=== PATIENT | female | born 1955 | race Caucasian/White ===

== ENCOUNTER 2024-02-29 15:33 | Emergency (ER) | payer MEDICARE ==
[~2024-02-29] VITALS: Ht 167.6 cm; Wt 88.9 kg
[2024-02-29 15:51] VITALS: BP 106/56; PULSE 92; RESP 18; O2SAT 97
[2024-02-29 16:55] LABS: BILIRUBIN,URINE MODERATE (Neg); CLARITY,URINE CLOUDY (Clear); COLOR,URINE YELLOW (Yellow); GLUCOSE, URINE NEGATIVE (Neg); KETONES,URINE TRACE mg/dl (Neg); LEUKOCYTE ESTERASE ,URINE MODERATE (Neg); NITRITES, URINE NEGATIVE (Neg); OCCULT BLOOD,URINE SMALL (Neg); PROTEIN,URINE 100 mg/dl (Neg)
[2024-02-29 17:13] LABS: UA COLLECTION TYPE CLN CATCH MIDSTREAM
[2024-02-29 17:15] LABS: SQUAMOUS EPITHELIAL CELL,UR FEW /LPF (FEW)
[2024-02-29 17:16] LABS: WBC,URINE TNTC /HPF (0-4)
[2024-02-29 17:17] LABS: BACTERIA,URINE 3+ /HPF (Neg)
[2024-02-29] MEDS ORDERED: LEVO250T74 PO (17:32)
[2024-02-29] MEDS: levoFLOXACIN 250mg tablet PO ONE (18:13)
[2024-02-29 18:14] VITALS: TEMP 98
== END 2024-02-29 18:15 | disposition home or self-care (01) ==
LOC: ER 15:33
DX: N39.0 Urinary tract infection, site not specified (principal); R31.9 Hematuria, unspecified; Z88.1 Allergy status to other antibiotic agents
CPT/HCPCS: 81001; 87088; 99283

== ENCOUNTER 2024-03-16 11:00 | Emergency (ER) | payer MEDICARE ==
[~2024-03-16] VITALS: Ht 170.2 cm; Wt 87.3 kg
[~2024-03-16 11:00] MED LIST: LEVO250T74 PO
[2024-03-16 12:30] LABS: BILIRUBIN,URINE NEGATIVE (Neg); CLARITY,URINE CLOUDY (Clear); COLOR,URINE YELLOW (Yellow); GLUCOSE, URINE NEGATIVE (Neg); KETONES,URINE NEGATIVE (Neg); LEUKOCYTE ESTERASE ,URINE MODERATE (Neg); NITRITES, URINE NEGATIVE (Neg); OCCULT BLOOD,URINE TRACE-INTACT (Neg); PROTEIN,URINE 100 mg/dl (Neg); UROBILINOGEN,URINE 0.2 E.U/dL (0.2-1.0)
[2024-03-16 12:33] LABS: UA COLLECTION TYPE CLN CATCH MIDSTREAM
[2024-03-16 12:35] LABS: RBC,URINE 0-2 /HPF (0-2); WBC,URINE TNTC /HPF (0-4)
[2024-03-16 12:36] LABS: BACTERIA,URINE 4+ /HPF (Neg); MUCUS STRANDS NONE SEEN /LPF (Neg); SQUAMOUS EPITHELIAL CELL,UR MODERATE /LPF (FEW); WBC CLUMPS,URINE FEW /HPF (NEGATIVE)
[2024-03-16] MEDS ORDERED: CEPH-585 PO (12:57)
[2024-03-16] MEDS: CefTRIAXone 1000mg IM Kit (w/lidocaine diluent) IM ONE (12:59)
[2024-03-16 13:06] VITALS: BP 116/72; PULSE 80; RESP 18; TEMP 97.6; O2SAT 97
== END 2024-03-16 13:08 | disposition home or self-care (01) ==
LOC: ER 11:00
DX: N39.0 Urinary tract infection, site not specified (principal)
CPT/HCPCS: 81001; 87088; 96372; 99283; J0696

== ENCOUNTER 2024-03-31 11:04 | Inpatient (IN) | payer MEDICARE ==
[~2024-03-31] VITALS: Ht 170.2 cm; Wt 85.0 kg
[2024-03-31 11:47] LABS: BILIRUBIN,URINE NEGATIVE (Neg); CLARITY,URINE TURBID (Clear); COLOR,URINE YELLOW (Yellow); GLUCOSE, URINE NEGATIVE (Neg); KETONES,URINE TRACE mg/dl (Neg); LEUKOCYTE ESTERASE ,URINE SMALL (Neg); NITRITES, URINE NEGATIVE (Neg); OCCULT BLOOD,URINE SMALL (Neg); PH,URINE 6.5 (4.8-8.0); PROTEIN,URINE >=300 mg/dl (Neg)
[2024-03-31 11:48] LABS: UA COLLECTION TYPE CLN CATCH MIDSTREAM
[2024-03-31 11:53] LABS: HYALINE CASTS 0-3 /LPF (NEGATIVE); SQUAMOUS EPITHELIAL CELL,UR MODERATE /LPF (FEW); WBC,URINE TNTC /HPF (0-4)
[2024-03-31 11:54] LABS: AMORPHOUS URATES 3+; BACTERIA,URINE 4+ /HPF (Neg); TRANSITIONAL EPI CELLS,URINE FEW /HPF; WBC CLUMPS,URINE FEW /HPF (NEGATIVE)
[2024-03-31 14:00] LABS: BASOPHILS % (AUTO) 0.3 % (0-1); EOSINOPHILS # (AUTO) 0.5 X10'3 (0-0.9); EOSINOPHILS % (AUTO) 4.9 % (0-6); HEMATOCRIT 32.7 % (35.0-45.0); LYMPHOCYTES # (AUTO) 2.2 X10'3 (1.1-4.8); LYMPHOCYTES % (AUTO) 22.7 % (21-51); MEAN CORPUSCULAR HEMOGLOBIN 31.6 PG (27.0-31.0); MEAN CORPUSCULAR HGB CONC 33.6 g/dL (33.0-36.5); MEAN CORPUSCULAR VOLUME 94.1 FL (78-98); MEAN PLATELET VOLUME 7.7 FL (7.4-10.4); MONOCYTES # (AUTO) 1.1 X10'3 (0-0.9); MONOCYTES % (AUTO) 11.7 % (2-12); NEUTROPHILS # (AUTO) 5.9 X10'3 (1.8-7.7); NEUTROPHILS % (AUTO) 60.4 % (42-75); PLATELET COUNT 329 X10'3 (140-440); RED BLOOD COUNT 3.48 X10'6 (4.20-5.60); RED CELL DISTRIBUTION WIDTH 14.3 % (11.5-14.5); WHITE BLOOD COUNT 9.8 X10'3 (4.5-11.0)
[2024-03-31] MEDS ORDERED: iohexol 300mg/ml 100ml inj. ONE (14:48)
[2024-03-31 15:29] LABS: ALANINE AMINOTRANSFERASE 38 U/L (12-78); ALBUMIN 3.3 G/DL (3.4-5.0); ALBUMIN/GLOBULIN RATIO 0.7 (1.1-1.5); ALKALINE PHOSPHATASE 155 IU/L (46-116); ANION GAP 6 (8-16); ASPARTATE AMINO TRANSFERASE 30 U/L (10-37); BILIRUBIN,TOTAL 0.5 MG/DL (0.1-1.0); BLOOD UREA NITROGEN 17 MG/DL (7-18); BUN/CREATININE RATIO 12.5 (10.0-20.0); CHLORIDE 103 MMOL/L (99-107); CREATININE 1.36 MG/DL (0.40-0.90); GLUCOSE 105 MG/DL (70-104); POTASSIUM 4.8 MMOL/L (3.5-5.1); SODIUM 138 MMOL/L (135-145); TOTAL CARBON DIOXIDE 29.1 MMOL/L (24-32); TOTAL PROTEIN 7.8 G/DL (6.4-8.2); eCRCL 37 ML/MIN; eGFR 38 ML/MIN
[2024-03-31] MEDS: piperacillin/tazo 3.375gm/50ml 50 ML IV ONE (16:53)
[2024-03-31] MEDS ORDERED: acetaminophen 325mg tablet PO PRN ×2 (18:10)
[2024-03-31] MEDS ORDERED: mag hydrox/Alum hydrox/simeth 30ml oral suspension PO PRN (18:10)
[2024-03-31] MEDS ORDERED: potassium Cl 40MEQ/1/2NS 520ml 520 ML IV PRN (18:10)
[2024-03-31] MEDS ORDERED: ondansetron/PF 4mg/2ml inj IV PRN (18:10)
[2024-03-31] MEDS ORDERED: bisacodyl 10mg suppository rectal RC PRN (18:10)
[2024-03-31] MEDS ORDERED: HYDROcodone/acetaminophen 10/325mg tab PO PRN (18:10)
[2024-03-31] MEDS ORDERED: HYDROmorphone inj. 0.5 MG/0.5 ML DISP.SYRIN IV PRN ×2 (18:10)
[2024-03-31] MEDS ORDERED: vancomycin inj 1,000 MG in normal saline 250ml IV soln 250 ML IV ONE (18:10)
[2024-03-31] MEDS ORDERED: potassium Cl 20 mEq SR tablet PO PRN ×2 (18:10)
[2024-03-31] MEDS ORDERED: magnesium sulf-water 4G/100mL 100 ML IV PRN (18:10)
[2024-03-31] MEDS ORDERED: magnesium sulf-water 2g/50mL 50 ML IV PRN (18:10)
[2024-03-31] MEDS ORDERED: diatr meglu/diatrizoate 30ml oral sol.-(3 dose) bottle ONE (18:38)
[2024-03-31] MEDS: K and/or MAG REPLACEMENT MC SCH (19:08)
[2024-03-31] MEDS: normal saline 1000ml 1,000 ML IV SCH (19:22)
[2024-03-31] MEDS: VANCOMYCIN 1GM 200ML H20 (PEG) 200 ML IV SCH (19:22)
[2024-03-31] MEDS: docusate sod 100mg capsule PO SCH (20:00)
[2024-03-31] MEDS: enoxaparin 40mg/0.4ml syringe SQ SCH (20:05)
[2024-03-31] MEDS: cefepime 1GM in D5W 50mL 50 ML IV SCH (21:12)
[2024-04-01] MEDS ORDERED: NO HOME MEDS (01:52)
[2024-04-01 03:35] LABS: BASOPHILS % (AUTO) 0.3 % (0-1); EOSINOPHILS # (AUTO) 0.4 X10'3 (0-0.9); EOSINOPHILS % (AUTO) 4.8 % (0-6); HEMATOCRIT 27.9 % (35.0-45.0); HEMOGLOBIN 9.6 g/dl (12.0-16.0); LYMPHOCYTES # (AUTO) 1.8 X10'3 (1.1-4.8); LYMPHOCYTES % (AUTO) 20.2 % (21-51); MEAN CORPUSCULAR HEMOGLOBIN 32.2 PG (27.0-31.0); MEAN CORPUSCULAR HGB CONC 34.4 g/dL (33.0-36.5); MEAN CORPUSCULAR VOLUME 93.7 FL (78-98); MEAN PLATELET VOLUME 8.1 FL (7.4-10.4); MONOCYTES # (AUTO) 1.1 X10'3 (0-0.9); MONOCYTES % (AUTO) 12.5 % (2-12); NEUTROPHILS # (AUTO) 5.6 X10'3 (1.8-7.7); NEUTROPHILS % (AUTO) 62.2 % (42-75); PLATELET COUNT 268 X10'3 (140-440); RED BLOOD COUNT 2.98 X10'6 (4.20-5.60); RED CELL DISTRIBUTION WIDTH 13.7 % (11.5-14.5)
[2024-04-01 03:48] LABS: ALANINE AMINOTRANSFERASE 33 U/L (12-78); ALBUMIN 2.6 G/DL (3.4-5.0); ALBUMIN/GLOBULIN RATIO 0.6 (1.1-1.5); ALKALINE PHOSPHATASE 125 IU/L (46-116); ANION GAP 10 (8-16); ASPARTATE AMINO TRANSFERASE 23 U/L (10-37); BILIRUBIN,TOTAL 0.4 MG/DL (0.1-1.0); BLOOD UREA NITROGEN 15 MG/DL (7-18); BUN/CREATININE RATIO 12.3 (10.0-20.0); CALCIUM 8.3 MG/DL (8.5-10.1); CHLORIDE 106 MMOL/L (99-107); CREATININE 1.22 MG/DL (0.40-0.90); GLUCOSE 134 MG/DL (70-104); POTASSIUM 3.7 MMOL/L (3.5-5.1); SODIUM 140 MMOL/L (135-145); TOTAL CARBON DIOXIDE 23.9 MMOL/L (24-32); TOTAL PROTEIN 7.1 G/DL (6.4-8.2); eCRCL 41 ML/MIN; eGFR 43 ML/MIN
[2024-04-01] MEDS: VANCOMYCIN 1GM 200ML H20 (PEG) 200 ML IV SCH (10:28)
[2024-04-01] MEDS: HYDROcodone/acetaminophen 5mg/325mg tablet PO PRN (11:43)
[2024-04-01 14:20] VITALS: BP 122/61; PULSE 81; TEMP 97.4; O2SAT 98
[2024-04-01 18:00] VITALS: BP 137/67; PULSE 71; RESP 18; TEMP 97.3; O2SAT 98
[2024-04-01 20:00] VITALS: O2SAT 98
[2024-04-01 22:00] VITALS: BP 118/60; PULSE 76; RESP 15; TEMP 97.6; O2SAT 96
[2024-04-02 06:00] VITALS: BP 133/61; PULSE 72; RESP 14; TEMP 97.5; O2SAT 96
[2024-04-02 06:55] LABS: BASOPHILS % (AUTO) 0.2 % (0-1); EOSINOPHILS # (AUTO) 0.3 X10'3 (0-0.9); EOSINOPHILS % (AUTO) 3.8 % (0-6); HEMOGLOBIN 9.6 g/dl (12.0-16.0); LYMPHOCYTES # (AUTO) 1.5 X10'3 (1.1-4.8); MEAN CORPUSCULAR HEMOGLOBIN 32.4 PG (27.0-31.0); MEAN CORPUSCULAR HGB CONC 34.5 g/dL (33.0-36.5); MEAN CORPUSCULAR VOLUME 94.1 FL (78-98); MEAN PLATELET VOLUME 8.3 FL (7.4-10.4); MONOCYTES % (AUTO) 12.4 % (2-12); NEUTROPHILS # (AUTO) 5.2 X10'3 (1.8-7.7); NEUTROPHILS % (AUTO) 64.6 % (42-75); PLATELET COUNT 267 X10'3 (140-440); RED BLOOD COUNT 2.97 X10'6 (4.20-5.60); RED CELL DISTRIBUTION WIDTH 13.9 % (11.5-14.5); WHITE BLOOD COUNT 8.1 X10'3 (4.5-11.0)
[2024-04-02 08:10] LABS: ALANINE AMINOTRANSFERASE 30 U/L (12-78); ALBUMIN 2.6 G/DL (3.4-5.0); ALBUMIN/GLOBULIN RATIO 0.6 (1.1-1.5); ALKALINE PHOSPHATASE 121 IU/L (46-116); ANION GAP 10 (8-16); ASPARTATE AMINO TRANSFERASE 22 U/L (10-37); BILIRUBIN,TOTAL 0.4 MG/DL (0.1-1.0); BLOOD UREA NITROGEN 11 MG/DL (7-18); BUN/CREATININE RATIO 10.8 (10.0-20.0); CALCIUM 8.5 MG/DL (8.5-10.1); CHLORIDE 109 MMOL/L (99-107); CREATININE 1.02 MG/DL (0.40-0.90); GLUCOSE 99 MG/DL (70-104); MAGNESIUM 2.1 MG/DL (1.5-2.4); POTASSIUM 4.1 MMOL/L (3.5-5.1); SODIUM 141 MMOL/L (135-145); TOTAL CARBON DIOXIDE 22.3 MMOL/L (24-32); eCRCL 49 ML/MIN; eGFR 53 ML/MIN
[2024-04-02] MEDS ORDERED: VANCOMYCIN LEVEL IV ONE (09:30)
[2024-04-03 06:09] LABS: CARCINOEMBRYONIC ANTIGEN 0.7 ng/mL (0.0-4.7)
[2024-04-05] MEDS ORDERED: HYDR-3973 PO (14:11)
== END 2024-04-02 08:14 | disposition left against medical advice (07) | DRG 757 ==
LOC: ER 11:04 → ED HOLD 18:19 → ORTHO 4S 04-01 14:10
PROVIDERS: ADMIT Family Medicine; ATTEND Family Medicine
DX: N73.9 Female pelvic inflammatory disease, unspecified (principal); N17.0 Acute kidney failure with tubular necrosis; A09 Infectious gastroenteritis and colitis, unspecified; N39.0 Urinary tract infection, site not specified; R19.00 Intra-abdominal and pelvic swelling, mass and lump, unspecified site; Z80.3 Family history of malignant neoplasm of breast; Z87.440 Personal history of urinary (tract) infections; Z90.711 Acquired absence of uterus with remaining cervical stump; Z53.29 Procedure and treatment not carried out because of patient's decision for other reasons
CPT/HCPCS: 36415; 74176; 74177; 80053; 80202; 81001; 82378; 83735; 85025; 86301; 87081; 87088; 96365; 99285; G0378; J0692; J1650; J2543; J3372; J7030; Q9963; Q9967

== ENCOUNTER 2024-04-25 09:08 | Emergency (ER) | payer MEDICARE ==
[~2024-04-25] VITALS: Ht 170.2 cm; Wt 69.2 kg
[~2024-04-25 09:08] MED LIST changes: +CYAN500T71 PO; +HYDR-3973 PO; +IRON150C13 PO; -LEVO250T74 PO; +LEVO750T68 PO; +OXYB5TAB21 PO; +PANT40TA54 PO
[2024-04-25 15:05] VITALS: BP 132/67; PULSE 81; RESP 16; TEMP 98.4; O2SAT 98
== END 2024-04-25 14:59 | disposition home or self-care (01) ==
LOC: ER 09:09
DX: Z46.6 Encounter for fitting and adjustment of urinary device (principal); Z85.038 Personal history of other malignant neoplasm of large intestine; Z85.51 Personal history of malignant neoplasm of bladder; Z98.890 Other specified postprocedural states
CPT/HCPCS: 51702; 99284; A4314

== ENCOUNTER 2024-09-15 12:03 | Emergency (ER) | payer MEDICARE ==
[~2024-09-15] VITALS: Ht 170.2 cm; Wt 78.6 kg
[~2024-09-15 12:03] MED LIST changes: -LEVO750T68 PO
[2024-09-15 12:05] VITALS: RESP 13
[2024-09-15 14:31] LABS: EOSINOPHILS % (AUTO) 0 % (0-6); HEMATOCRIT 22.7 % (35.0-45.0); MEAN CORPUSCULAR HEMOGLOBIN 32.7 PG (27.0-31.0); MEAN CORPUSCULAR HGB CONC 35.1 g/dL (33.0-36.5); NEUTROPHILS % (AUTO) 55.7 % (42-75); RED BLOOD COUNT 2.44 X10'6 (4.20-5.60)
[2024-09-15 14:33] LABS: BASOPHILS % (AUTO) 0 % (0-1); LYMPHOCYTES # (AUTO) 0.7 X10'3 (1.1-4.8); LYMPHOCYTES % (AUTO) 18.8 % (21-51); MEAN CORPUSCULAR VOLUME 93.1 FL (78-98); MEAN PLATELET VOLUME 7.9 FL (7.4-10.4); MONOCYTES # (AUTO) 0.9 X10'3 (0-0.9); MONOCYTES % (AUTO) 25.5 % (2-12); PLATELET COUNT 128 X10'3 (140-440); WHITE BLOOD COUNT 3.7 X10'3 (4.5-11.0)
[2024-09-15 14:34] LABS: ALANINE AMINOTRANSFERASE 51 U/L (12-78); ALBUMIN/GLOBULIN RATIO 0.7 (1.1-1.5); ALKALINE PHOSPHATASE 267 IU/L (46-116); ANION GAP 8 (8-16); ASPARTATE AMINO TRANSFERASE 37 U/L (10-37); BILIRUBIN,TOTAL 0.7 MG/DL (0.1-1.0); BLOOD UREA NITROGEN 22 MG/DL (7-18); BUN/CREATININE RATIO 15.6 (10.0-20.0); CALCIUM 9.1 MG/DL (8.5-10.1); CHLORIDE 101 MMOL/L (99-107); CREATININE 1.41 MG/DL (0.40-0.90); GLUCOSE 111 MG/DL (70-104); LIPASE 10 U/L (16-77); POTASSIUM 4.1 MMOL/L (3.5-5.1); SODIUM 139 MMOL/L (135-145); TOTAL CARBON DIOXIDE 29.7 MMOL/L (24-32); TOTAL PROTEIN 7.3 G/DL (6.4-8.2); eCRCL 36 ML/MIN; eGFR 37 ML/MIN
--- NOTE | 2024-09-15 14:48 | Physician Documentation ---
History of Present Illness ~ Chief Complaint: Weakness Stated Complaint: ABNORMAL VITALS Time Seen by MD: 14:48 OK to notify your PCP?: Yes Primary Medical Doctor: dr. vizcarra Mode of Arrival: POV HPI 69-year-old female history of cancer on chemotherapy, who presents with generalized weakness. History is from the patient and her . They report that she has had generalized weakness over the past couple of days. She is on chemotherapy currently. The home health nurse thought that she had a fever and was dehydrated and told him to come in. Her blood pressure was also reportedly low at that time. The patient confirms generalized weakness. She does report feeling hot. She did have some discomfort with urination. No significant congestion, cough or shortness of breath. No abdominal pain, nausea vomiting or diarrhea. She does take pain medication has not had any for about 10 hours. She has not really been eating or drinking well over the past couple of days. Medication Reconciliation Allergies: Coded Allergies: No Known Allergies (Unverified , 04/06/24) Scheduled Cyanocobalamin* (Vitamin B-12*), 500 MCG PO DAILY Iron Polysaccharide Complex (Poly-Iron), 150 MG PO BID Pantoprazole Sodium (Pantoprazole Sodium), 40 MG PO DAILY Sulfamethoxazole/Trimethoprim (Bactrim Ds Tablet), 1 TAB PO Q12H Scheduled PRN Hydrocodone Bit/Acetaminophen (Hydrocodone-Apap 10-325 Tablet), 1 TAB PO Q4H PRN for pain, (Reported) Oxybutynin Chloride (Oxybutynin Chloride), 5 MG PO BID PRN for for bladder spasms/leakage Past Medical History Past Medical History: *GI/HEPATOBILIARY*, *CANCER*, Colon Cancer Past Surgical History: abdominal surgery Patient History: FH: breast cancer MOTHER sister Paternal Grandmother Drug Use: none Lives In: Home Review of Systems Constitutional: Reports: diaphoresis Gastrointestinal: Denies: abdominal pain, vomiting, diarrhea, constipated Genitourinary: Reports: dysuria Physical Exam Vital Signs: Temperature: 99.9, Heart Rate: 102, Respiratory Rate: 13, BP: 108/52, Pulse Oximetry: 95, Weight: 78.640 Physical Exam General: This is a chronically ill-appearing older female, at bedside HEENT: The patient does not have hair, no traumatic findings, oropharynx is dry with cracked lips Heart: Mild tachycardia, appears irregular on palpation, but appears sinus rhythm on the monitor with PVCs Lungs: normal work of breathing, normal oxygen saturation on room air Abdomen: Soft, nondistended, nontender all quadrants. There is an ostomy bag in place, with normal output. Neuro: Alert and oriented, no focal deficits Psychiatric: Flattened affect and appears tired Progress Results/Orders Results/Orders Orders - GARRET RODRIGUES MD Culture Blood (09/15/24 13:46) Monitor (09/15/24 13:46) Saline Lock (09/15/24 13:46) Cult Urine + [place] [address] (09/15/24 15:32) Completed Orders - GARRET RODRIGUES MD Cbc/Diff (09/15/24 13:46) BMP (09/15/24 13:46) Lipase (09/15/24 13:46) CMP (09/15/24 13:46) Procalcitonin (09/15/24 13:46) Man Diff (09/15/24 14:12) Normal Saline 1000ml (Sodium Chloride 10 (09/15/24 15:00) Hydrocodone/Apap 10/325 ([place] 10/325mg (09/15/24 15:10) Ua W/Microscopic, Cult If Ind (09/15/24 15:07) Ceftriaxone/[id number] 1gm (Rocephin 1 (09/15/24 15:40) Sulfamethox/Trimetho. Ds Tab (Septra Ds (09/15/24 17:05) Medications Received in ER Medications (Trade) Dose Ordered Sig/Loki Route PRN Reason Start Time Stop Time Status Last Admin Dose Admin Sodium Chloride 1,000 ml @ 1,000 mls/hr ONCE ONCE IV 09/15/24 15:00 09/15/24 15:59 DC 09/15/24 15:53 1,000 MLS/HR ([place] 10/325mg tab) 1 tab ONCE ONCE PO 09/15/24 15:10 09/15/24 15:12 DC 09/15/24 15:54 1 TAB (Septra DS tab) 1 tab ONCE ONCE PO 09/15/24 17:05 09/15/24 17:06 DC 09/15/24 17:17 1 TAB Vital Signs 09/15/24 09/15/24 09/15/2416/25 12:05 13:41 14:50 17:24 Temp 99.9 102.4 102.4 Pulse 102 97 Resp 13 B/P (MAP) 108/52 119/68 (85) Pulse Ox 95 96 O2 Flow Rate 0 Laboratory Tests Test 09/15/24 14:12 09/15/24 15:07 White Blood Count 3.7 L Red Blood Count 2.44 L Hemoglobin 8.0 L Hematocrit 22.7 L Mean Corpuscular Volume 93.1 Mean Corpuscular Hemoglobin 32.7 H Mean Corpuscular Hemoglobin Concent 35.1 Red Cell Distribution Width 19.0 H Platelet Count 128 L Mean Platelet Volume 7.9 Neutrophils (%) (Auto) 55.7 Lymphocytes (%) (Auto) 18.8 L Monocytes (%) (Auto) 25.5 H Eosinophils (%) (Auto) 0 Basophils (%) (Auto) 0 Neutrophils # (Auto) 2.0 Lymphocytes # (Auto) 0.7 L Monocytes # (Auto) 0.9 Eosinophils # (Auto) 0.0 Basophils # (Auto) 0.0 CBC Comment Differential Total Cells Counted 100 Neutrophils % (Manual) 52.0 Band Neutrophils % 1.0 Lymphocytes % (Manual) 21.0 Monocytes % (Manual) 26.0 H Platelet Estimate Decreased Red Blood Cell Morphology Perf Basophilic Stippling Anisocytosis 2+ Stomatocytes 1+ Elliptocytes Few Sodium Level 139 Potassium Level 4.1 Chloride Level 101 Carbon Dioxide Level 29.7 Anion Gap 8 Blood Urea Nitrogen 22 H Creatinine 1.41 H Estimated GFR/1.73 m2 37 BUN/Creatinine Ratio 15.6 Glucose Level 111 H Calcium Level 9.1 Total Bilirubin 0.7 Aspartate Amino Transf (AST/SGOT) 37 Alanine Aminotransferase (ALT/SGPT) 51 Alkaline Phosphatase 267 H Total Protein 7.3 Albumin 3.0 L Globulin 4.3 Albumin/Globulin Ratio 0.7 L Lipase 10 L Procalcitonin 0.45 Chemistry Comments Urine Specimen Description Cln catch midstream Urine Color Yellow Urine Clarity Slightly cloudy Urine pH 8.5 Urine Specific [place] 1.010 Urine Protein >=300 H Urine Glucose (UA) Negative Urine Ketones Negative Urine Occult Blood Large H Urine Nitrite Positive H Urine Bilirubin Negative Urine Urobilinogen 2.0 H Urine Leukocyte Esterase Large H Urine RBC 20-50 Urine WBC 20-30 H Urine Squamous Epithelial Cells Few Urine Transitional Epithelial Cells Few Urine Bacteria 3+ Urine Mucus Moderate Urine Culture Indicated Indicated Volume Urine Centrifuged 10 ml Urine Comment Microbiology Date/Time Source Procedure Growth Status 09/15/24 15:32 Urine Clean Catch Midstream Urine Culture - Preliminary Culture received. Resulted 09/15/24 14:18 Blood Arm Left Blood Culture - Preliminary NEGATIVE (LESS THAN 24 HOURS) Resulted Re-Evaluation Re-Evaluation : Progress Re-evaluation: I discussed the results of her testing including urinary tract infection. I discussed possibility for admission for further treatment, but she is adamant that she does not want to be admitted to the hospital. Plan: IV fluids, IV antibiotics, and then discharge home. Medical Decision Making Additional Information Differential includes viral syndrome, UTI, dehydration, electrolyte derangement, chemotherapy reaction, cancer related disease Assessment The patient presents with generalized weakness and possible fevers. Her workup appears consistent with dehydration and a urinary tract infection. No other dangerous causes identified. I did offer admission for further treatment, but she declined, and wanted to go home. She will be treated with a course of Bactrim, increased oral hydration, and agreed to return if she has worsening symptoms. Departure Time of Disposition: 16:42 Disposition: 01 HOME / SELF CARE / HOMELESS Impression: Primary Impression: Dehydration Additional Impression: Acute urinary tract infection Condition: Improved Discharge Instructions: Urinary Tract Infection, Adult, Dehydration, Adult Referrals: NO PRIMARY CARE PROVIDER (PCP) Prescriptions Sulfamethoxazole/Trimethoprim (Bactrim Ds Tablet) 800 Mg-160 Mg Tablet 1 TAB PO Q12H for 5 Days, #10 TAB Prov: GARRET RODRIGUES MD 09/15/24 Education Educated: Patient, Family Educated regarding: diagnosis, treatment, need for follow up Signature Scribe Signature: janet Attestation: GARRET Cavanaugh MD September 15, 2024 14:48
[2024-09-15 14:50] VITALS: BP 119/68; PULSE 97; O2SAT 96
[2024-09-15 14:55] LABS: ANISOCYTOSIS 2+; PLATELET ESTIMATE DECREASED; TOTAL CELLS COUNTED 100
[2024-09-15 14:56] LABS: ELLIPTOCYTES FEW; STOMATOCYTES 1+
[2024-09-15 15:27] LABS: BILIRUBIN,URINE NEGATIVE (Neg); CLARITY,URINE SLIGHTLY CLOUDY (Clear); COLOR,URINE YELLOW (Yellow); GLUCOSE, URINE NEGATIVE (Neg); KETONES,URINE NEGATIVE (Neg); LEUKOCYTE ESTERASE ,URINE LARGE (Neg); NITRITES, URINE POSITIVE (Neg); OCCULT BLOOD,URINE LARGE (Neg); PH,URINE 8.5 (4.8-8.0); PROTEIN,URINE >=300 mg/dl (Neg)
[2024-09-15 15:28] LABS: UA COLLECTION TYPE CLN CATCH MIDSTREAM
[2024-09-15 15:32] LABS: BACTERIA,URINE 3+ /HPF (Neg); MUCUS STRANDS MODERATE /LPF (Neg); RBC,URINE 20-50 /HPF (0-2); SQUAMOUS EPITHELIAL CELL,UR FEW /LPF (FEW); TRANSITIONAL EPI CELLS,URINE FEW /HPF; WBC,URINE 20-30 /HPF (0-4)
[2024-09-15] MEDS: CefTRIAXone/D5W-Rocephin 1gm 50 ML IV ONE (15:40)
[2024-09-15] MEDS: normal saline 1000ml 1,000 ML IV ONE (15:53)
[2024-09-15] MEDS: HYDROcodone/acetaminophen 10/325mg tab PO ONE (15:54)
[2024-09-15] MEDS ORDERED: SULF1TAB49 PO (16:43)
[2024-09-15] MEDS: sulfamethoxazole/trimethoprim DS (800/160mg) tablet PO ONE (17:17)
[2024-09-15 17:24] VITALS: TEMP 102.4
== END 2024-09-15 17:25 | disposition home or self-care (01) ==
LOC: ER 12:04
DX: E86.0 Dehydration (principal); N39.0 Urinary tract infection, site not specified; Z85.038 Personal history of other malignant neoplasm of large intestine
CPT/HCPCS: 36415; 80053; 81001; 83690; 84145; 85025; 87040; 87077; 87088; 87186; 96360; 99283; J7030; 85007

== ENCOUNTER 2024-12-05 09:15 | Outpatient (CLI) | payer MEDICARE ==
[~2024-12-05 09:15] MED LIST changes: +diatrizoate meglumine 300mg/ml (30%) 300ml UR ONE
--- NOTE | 2024-12-05 13:36 | RADIOLOGY REPORT ---
Exam: CT CT ABDOMEN PELVIS History: VESICOVAGINAL FISTULA COMPARISON: CT CT ABDOMEN PELVIS on DOS: 04/15/24, CT CT ABDOMEN PELVIS on DOS: 03/31/24, CT CT ABDOM EN PELVIS on DOS: 03/31/24 Technique: Multidetector spiral CT of the abdomen and pelvis was performed from lung bases to pubic s ymphysis. Urinary bladder contrast was administered during this examination. Multiphase CT cystogram protocol imaging was obtained. Axial, coronal and sagittal multiplanar reformats were performed by brittni brar technologist on a separate workstation. Radiation Dose : 1. Abdomen/Pelvis: CTDIvol 19.9mGy, DLP 2885 mGy*cm. Findings: Lung Bases: No acute or significant lung base finding. Normal heart size. No pleural or pericardial effusion. Liver: The liver is normal in size. No focal lesions. Normal hepatic vascular enhancement. Gallbladder and Biliary Tree: Unremarkable Spleen: Unremarkable Pancreas: The pancreas is normal in appearance without focal lesions or abnormal enhancement. Adrenal Glands: Unremarkable Kidneys: No hydronephrosis. Left internal ureteral stent in satisfactory position. Bladder: Richey catheter in the urinary bladder. Contrast instilled via the urinary bladder demonstrat es filling of the vagina. Bowel: The stomach is grossly normal in appearance. Small bowel and colon are normal in caliber and d istribution. The appendix is not visualized; however, no secondary findings of acute appendicitis maria del carmen ntified. Ascites: Absent Lymphadenopathy: No mesenteric, retroperitoneal or periportal lymphadenopathy. Abdominal Wall and Mesentery: Postsurgical changes of the anterior abdominal wall. Vasculature: The visualized abdominal aorta is normal in size and caliber. Abdominal and pelvic vess els demonstrate normal enhancement. Pelvic Organs: Post hysterectomy. Musculoskeletal: No aggressive focal bony lesions, acute fractures or dislocation. 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
== END 2024-12-05 23:59 | disposition home or self-care (01) ==
LOC: RAD 09:15
PROVIDERS: ATTEND Student in an Organized Health Care Education/Training Program
DX: N82.0 Vesicovaginal fistula (principal); Z90.710 Acquired absence of both cervix and uterus
CPT/HCPCS: 74178; Q9958